=== PATIENT | male | born 1975 | race Caucasian/White ===

== ENCOUNTER 2020-01-20 11:49 | Emergency (ER) | payer MEDICAID ==
[~2020-01-20] VITALS: Ht 175.3 cm; Wt 71.8 kg
[2020-01-20] MEDS ORDERED: BUPIVAcaine/PF 7.5 mg/ml (0.75%) 30ml vial IJ ONE (15:15)
[2020-01-20] MEDS ORDERED: BUPIVAcaine/PF 7.5mg/ml (0.75%) 10ml vial IJ ONE (15:20)
[2020-01-20] MEDS ORDERED: NAPR-56 PO (15:51)
[2020-01-20 16:11] VITALS: BP 146/86
== END 2020-01-20 16:10 | disposition home or self-care (01) ==
LOC: ER 11:50
DX: R51 Headache (principal); R11.0 Nausea; R42 Dizziness and giddiness; M54.2 Cervicalgia
CPT/HCPCS: 20552; 64405; 93005; 99284

== ENCOUNTER 2020-01-20 20:30 | Emergency (ER) | payer MEDICAID ==
[~2020-01-20] VITALS: Ht 175.3 cm; Wt 77.3 kg
[~2020-01-20 20:30] MED LIST: NAPR-56 PO
[2020-01-20] MEDS ORDERED: naproxen sodium 220mg tablet PO SCH (21:40)
[2020-01-20] MEDS ORDERED: mag hydrox/Alum hydrox/simeth 30ml oral suspension PO ONE (21:45)
[2020-01-20] MEDS ORDERED: naproxen 500mg tablet PO SCH (21:45)
[2020-01-20 21:57] VITALS: BP 135/84
== END 2020-01-20 21:59 | disposition home or self-care (01) ==
LOC: ER 20:31
DX: M54.2 Cervicalgia (principal); R51 Headache; R11.10 Vomiting, unspecified; F17.200 Nicotine dependence, unspecified, uncomplicated; Z79.899 Other long term (current) drug therapy
CPT/HCPCS: 99283

== ENCOUNTER 2020-02-07 10:04 | Emergency (ER) | payer MEDICAID ==
[~2020-02-07] VITALS: Ht 175.3 cm; Wt 64.0 kg
--- NOTE | 2020-02-07 10:44 | NUR ---
SEEN BY PMD THIS AM. GIVEN TORODOL SHOT LAST WEEK FOR LEFT HIP. TOOK 1 CELEBREX THIS AM 0945. WITH NO RELIEF. NORMALLY ON CELEBREX BID BUT WAS FASTING BEFORE LAB DRAW THIS AM WITH PMD.
[2020-02-07] MEDS ORDERED: HYDROcodone/acetaminophen 10/325mg tab PO ONE (11:00)
[2020-02-07 11:21] VITALS: BP 137/92
== END 2020-02-07 11:15 | disposition home or self-care (01) ==
LOC: ER 10:05
DX: M25.511 Pain in right shoulder (principal); G89.29 Other chronic pain; Z79.899 Other long term (current) drug therapy
CPT/HCPCS: 99283

== ENCOUNTER 2021-01-26 17:17 | Emergency (ER) | payer MEDICAID ==
[~2021-01-26] VITALS: Ht 175.3 cm; Wt 70.3 kg
[2021-01-26 17:32] VITALS: BP 117/73
== END 2021-01-27 00:55 | disposition left against medical advice (07) ==
LOC: ER 17:18
DX: Z53.21 Procedure and treatment not carried out due to patient leaving prior to being seen by health care provider (principal); V89.2XXA Person injured in unspecified motor-vehicle accident, traffic, initial encounter; Y93.9 Activity, unspecified; Y92.9 Unspecified place or not applicable; Y99.9 Unspecified external cause status